=== PATIENT | female | born 1935 | race Caucasian/White ===

== ENCOUNTER → 2017-04-04 | Outpatient (CLI) | payer BC | LOC: FIMAGING 07:25 | PROVIDERS: ATTEND Internal Medicine Cardiovascular Disease | DX: I70.0 Atherosclerosis of aorta (principal); I77.89 Other specified disorders of arteries and arterioles ==

== ENCOUNTER 2018-08-03 13:29 | Emergency (ER) | payer BC ==
[2018-08-03] MEDS ORDERED: SKIN ADHESIVE (DERMABOND) 1 EACH TP ONE (14:01)
--- NOTE | 2018-08-03 14:04 | EDPHY ---
H & P Stated Complaint: pt says she tripped/fell cutting chin, no loc, no other complaints Time Seen by Provider: 08/03/18 13:51 HPI/ROS: CHIEF COMPLAINT: Chin laceration HISTORY OF PRESENT ILLNESS: 82-year-old female with no anticoagulant use arrives via private vehicle complaining of acute chin laceration after she tripped on the concrete landed on her chin. Occurred approximately 2 hr prior to arrival. No loss of consciousness. No dental malalignment, no midline C- spine pain, no peripheral paresthesia, weakness, numbness, no alcohol or drug use, no chest pain or trauma no back pain or trauma REVIEW OF SYSTEMS: 10 systems reviewed and negative with the exception of the elements mentioned in the history of present illness PAST MEDICAL/SURGICAL HISTORY: no anticoagulant use, SOCIAL HISTORY: denies alcohol use at time of incident PHYSICAL EXAM 1) GENERAL: Well-developed, well-nourished, alert and oriented. Appears to be in no acute distress. Answering questions appropriately. 2) HEAD: Normocephalic, atraumatic 3) HEENT: Pupils equal, round, reactive to light bilaterally. Negative Horners. Nasopharynx, oropharynx, clear. No deformity or angulation of nose. No septal hematoma. No rhinorrhea. No oral trauma. Ears bilaterally with normal tympanic membranes. No hemotympanum. No fluid or blood in the external auditory canal. No raccoon eyes. No Fernandes sign. 1.5 cm chin laceration. Linear. No underlying mandibular pain. No TMJ pain. Full TMJ range of motion which is pain free. Teeth are normally aligned with no gross malocclusion, TMJ bilaterally nontender, facial bones nontender including the zygomatic arch, maxilla mandible. 4) NECK: No cervical collar is on. Posterior cervical spine is nontender, no stepoff, no effusion. Full range of motion which does not elicit any midline cervical spine pain, no posterior midline tenderness, no step-off. 5) LUNGS: Clear to auscultation bilaterally, no wheezes, no rhonchi, no retractions. No obvious signs of trauma. No chest wall pain. No flaring, no grunting. Moving symmetrically. No crepitus. 6) HEART: Regular rate and rhythm, 7) ABDOMEN: No guarding, no rebound, no focal tenderness, no peritoneal signs, no signs of trauma, no ecchymosis 8) MUSCULOSKELETAL: Moving all extremities, no focal areas of tenderness, no obvious trauma. 9) BACK: No midline vertebral tenderness, no fluctuance, no step-off, no obvious trauma, no visual or palpable abnormality. 10) SKIN: No laceration. No abrasion 11) NEURO: Awake, alert, and oriented to person, place and time. Answers questions appropriately. There were no obvious focal neurologic abnormalities. No cerebellar dysfunction. Cranial nerves 2 through to 12 intact. Normal steady gait. Upper and lower extremities bilaterally with strength 5 / 5, reflexes 2+. DIFFERENTIAL DIAGNOSIS: Not necessarily in any particular order, my differential diagnosis includes, but is not limited to, concussion, skull fracture, intraparenchymal contusion, subarachnoid, subdural and epidural hematoma. The patient understands that this diagnosis is provisional and can never be 100% accurate. - Personal History Current Tetanus Diphtheria and Acellular Pertussis (TDAP): Unsure - Medical/Surgical History Hx Asthma: No Hx Chronic Respiratory Disease: No Hx Diabetes: No Hx Cardiac Disease: No Hx Renal Disease: No Hx Cirrhosis: No Hx Alcoholism: No Hx HIV/AIDS: No Hx Splenectomy or Spleen Trauma: No Other PMH: orif L shoulder - Social History Smoking Status: Never smoked Constitutional: Initial Vital Signs Temperature (C) 36.4 C 08/03/18 13:45 Heart Rate 68 08/03/18 13:45 Respiratory Rate 16 08/03/18 13:45 Blood Pressure 140/74 H 08/03/18 13:45 O2 Sat (%) 94 08/03/18 13:45 O2 Delivery Mode Room Air Allergies/Adverse Reactions: No Known Allergies Allergy (Unverified 08/03/18 13:49) Home Medications: Medication Instructions Recorded Fish Oil 1,000 mg Softgel 08/03/18 Medical Decision Making - Diagnostics Imaging Results: Imaging Impressions Head CT 08/03/18 14:01 Impression: Negative noncontrast CT of the brain. Results called to. Garcia Booth PA-C at 2:40 PM at the time of the interpretation. Cervical Spine CT 08/03/18 14:04 Impression: Multilevel cervical degenerative disk disease, without fracture identified. Results called to Garcia Booth PA-C, at 2:40 PM.. Images reviewed myself Procedures: Procedure: Laceration repair with tissue adhesive Verbal consent was obtained from the patient. The 1.5 cm laceration on the chin. The wound was scrubbed and explored to its base with a gloved finger. No foreign body seen, no foreign bodies palpated. There were no deep structures involved. The wound was repaired with tissue adhesive. The procedure was performed by myself. Patient has been informed that scarring will occur, although efforts have been made to minimize this. ED Course/Re-evaluation: 2:04 p.m.: Head CT ordered in this patient for trauma for the following indication: Greater than 65 years old. I do not think that dedicated facial imaging indicated as she has no maxillofacial pain. 2:55 p.m.: Re-evaluation. Discussed her imaging results. She is answering questions appropriately. Wound has been closed primarily in the ER. Plan will be discharge. Patient feels comfortable being discharged. All questions and concerns addressed by myself. Patient given my usual and customary discharge precautions and instructions regarding their clinical impression. Care of patient under supervision of secondary supervising physician Dr Gonzalez . Departure - Departure Disposition: Home, Routine, Self-Care Clinical Impression: Laceration Laceration of chin Qualifiers: Encounter type: initial encounter Qualified Code(s): S01.81XA - Laceration without foreign body of other part of head, initial encounter Head injury due to trauma Qualifiers: Encounter type: initial encounter Qualified Code(s): S09.90XA - Unspecified injury of head, initial encounter Condition: Good Instructions: Head Injury (ED), Laceration (ED), Skin Adhesive Care (ED) Additional Instructions: ALTHOUGH THERE IS NO EVIDENCE OF SERIOUS HEAD INJURY AT THIS TIME, DELAYED SIGNS CAN APPEAR 24 TO 48 HOURS AFTER INJURY. PLEASE RETURN TO THE EMERGENCY DEPARTMENT (ED) IMMEDIATELY IF YOU HAVE INCREASED HEADACHE, PERSISTENT HEADACHE , VOMITING, WEAKNESS, CONFUSION OR VISUAL PROBLEMS. WE RECOMMEND THAT YOU DO NOT RESUME CONTACT SPORTS OR ACTIVITIES THAT TAKE COORDINATION OR BALANCE SUCH SKIING OR RIDING A BICYCLE UNTIL CLEARED TO DO SO BY YOUR DOCTOR OR BY A NEUROLOGIST. Referrals: Dmitry Ayala MD [Medical Doctor] - 2-3 days, call for appt.
[2018-08-03 15:24] VITALS: BP 139/78
== END 2018-08-03 15:22 | disposition home or self-care (01) ==
PROC: 0HQ1XZZ Repair Face Skin, External Approach (ICD-10-PCS; principal; 2018-08-03)
DX: S01.81XA Laceration without foreign body of other part of head, initial encounter (principal); W01.0XXA Fall on same level from slipping, tripping and stumbling without subsequent striking against object, initial encounter